=== PATIENT | female | born 1955 | race Caucasian/White ===

== ENCOUNTER → 2016-05-29 | Outpatient (CLI) | payer MEDICARE, MEDICAID ==
[~2016-05-29] MED LIST: ASA CHILDREN'S81 MG PO; CARVEDILOL3.125 MG PO; CYMBALTA30 MG PO; ELAVIL-DPS50 MG PO; LASIX DPS40 MG PO; MICRO-K DPS10 MEQ PO; NAPROSYN DPS500 MG PO; PRILOSEC DPS20 MG PO
== END | disposition home or self-care (01) ==
LOC: RAD.S 05-25 17:23
DX: R10.2 Pelvic and perineal pain (principal); R14.0 Abdominal distension (gaseous); D25.9 Leiomyoma of uterus, unspecified